=== PATIENT | female | born 1950 | race Caucasian/White ===

== ENCOUNTER → 2016-09-03 | Day surgery (SDC) | payer MEDICARE ==
[~2016-09-03] MED LIST: ADVA500A INH; ALPR.5 PO; AMLO5 PO; CELE200C PO; FENT50DI T-DERMAL; IPRA0.02 NEB; LACTATED RINGER'S 1000 ML INJ 1,000 ML ONE; LEVA500T PO; LEXA20TA PO; LIDOCAINE 1%/EPINEPHrine 1:100,000 SOLN 20 ML VIAL ONE; MIDAZOLAM HCL 2 MG/2 ML VIAL ONE; MINO50CA PO; OMEP20CA2 PO; ONDANSETRON HCL 4 MG/2 ML VIAL IV PUSH ONE; OXYC1CAP PO; PROPOFOL 200 MG/20 ML AMP IV ONE; ROSU40 PO; TIZA2CAP3 PO; ceFAZolin INJ 1,000 MG VIAL ONE
--- NOTE | 2016-09-03 14:03 | TN ---
cc: SLY COSBY M.D. DATE OF SURGERY: 09/03/2016 PREOPERATIVE DIAGNOSIS Left carpal tunnel syndrome. POSTOPERATIVE DIAGNOSIS Left carpal tunnel syndrome. PROCEDURE: Left carpal tunnel release. SURGEON Florin Cosby MD [employer]: Staff. SPECIMEN: None. ESTIMATED BLOOD LOSS: None. COMPLICATIONS: None. ANESTHESIA; General, TIVA, local. TOURNIQUET TIME: 8 Minutes 200 mmHg. CONDITION: Stable. PLAN OF ACTIVITY: Per orders. PROCEDURE The patient was operating room had satisfactory anesthesia by the part of Anesthesia. Left upper extremity was prepped and draped in usual sterile. 4 cc 1% lidocaine with epinephrine was used to anesthetize the operative site is at the carpal canal. The extremity was exsanguinated found to inflated to 200 mmHg. Longitudinal singeing made over the carpal canal between the thenar, hypothenar eminences. Dissection carried through the subcutaneous tissue. Transverse carpal ligament was incised longitudinally. Release of the median nerve was made just proximal to the transverse carpal ligament involving the distal forearm fascia and also distally. Identification made of the recurrent motor branch. This was well-preserved throughout the operative procedure. All bleeders coagulated with bipolar anticoagulation. Incision was closed with multiple interrupted 3-0 Vicryl suture. The skin approximated multiple upper and 3-0 nylon sutures. The tourniquet was deflated. Wound itself was dry sterile dressings were applied. The patient tolerated the procedure well and room in stable and satisfactory condition. MD YAN Chowdhury/yvrose /1:55 PM /1:59 PM
== END | disposition home or self-care (01) ==
LOC: ESDC 12:01
PROVIDERS: ATTEND Orthopaedic Surgery Orthopaedic Surgery of the Spine
DX: G56.02 Carpal tunnel syndrome, left upper limb (principal)
CPT/HCPCS: 01810; 64721; J0690; J2250; J2405; J3010; J7120